=== PATIENT | female | born 1980 | race American Indian/Alaskan Native ===

== ENCOUNTER 2019-04-26 12:13 | Emergency (ER) | payer OTHER ==
[2019-04-26 12:53] VITALS: BP 116/78
--- NOTE | 2019-04-26 12:53 | Event Note ---
ED Screening Note Date of service: 04/26/19 Time: 12:50 ED Screening Note: rt knee pain and swelling times two weeks. Took nothing for pain. Denies any trauma This initial assessment/diagnostic orders/clinical plan/treatment(s) is/are subject to change based on patients health status, clinical progression and re- assessment by fellow clinical providers in the ED. Further treatment and workup at subsequent clinical providers discretion. Patient/guardian urged not to elope from the ED as their condition may be serious if not clinically assessed and managed. Initial orders include:
--- NOTE | 2019-04-26 15:09 | Emergency Department Report ---
ED Back Pain/Injury HPI - General Chief Complaint: Extremity Injury, Lower Stated Complaint: RT KNEE PAIN Time Seen by Provider: 04/26/19 14:15 Source: patient Limitations: Physical Limitation - History of Present Illness Initial Comments: Patient is a 38-year-old who comes to the ER complaining of right knee pain. She states that it was acute in onset this morning after she felt a pop. She denies any falls or other trauma. Patient is in a wheelchair on examination see. Her ability to ambulate is limited by pain. She is taking nothing at home to relieve the pain. Movement makes the pain worse. - Related Data Previous Rx's Medication Instructions Recorded Last Taken Type Ketorolac [Toradol] 10 mg PO Q6H PRN #10 tablet 04/26/19 Unknown Rx traMADol [Ultram] 50 mg PO Q6HR PRN #10 tablet 04/26/19 Unknown Rx Allergies Allergy/AdvReac Type Severity Reaction Status Date / Time No Known Allergies Allergy Unverified 04/26/19 12:19 ED Review of Systems ROS: Stated complaint: RT KNEE PAIN Other details as noted in HPI Comment: All other systems reviewed and negative ED Past Medical Hx - Past Medical History Medical history: no medical history ED Back Pain Physical Exam - Exam General: Vital signs noted. No distress. Alert and acting appropriately. Thigh is within normal limits on exam. Ankle within normal limits on exam. +2 DP pulses. There is no appreciable effusion on knee exam. There is no pain on palpation of the joint lines. There is a positive popliteal pulse. Back/Abdomen: No Abdominal Tenderness, No Perithoracic Tenderness, No Perilumbar Tenderness, No Sacroiliac Tenderness, No Flank Tenderness, No Straight Leg Raise Pain Neuro: Yes Normal Sensation, Yes Normal DTR's, Yes Normal Gait, No Motor Weakness ED Course Vital Signs 04/26/19 12:50 Temperature 98.2 F Pulse Rate 72 Respiratory 18 Rate Blood Pressure 116/78 O2 Sat by Pulse 100 Oximetry Ed Back Pain Tests - Tests Tests: Normal X Rays ED Medical Decision Making - Radiology Data Radiology results: report reviewed, image reviewed - Medical Decision Making X-rays noted to be normal. However, the patient is limited with ambulation due to pain. She will be placed in an immobilizer and placed on crutches. She'll be discharged home with medications for pain and follow-up with Dr. Herzog. Vital Signs 04/26/19 12:50 Temperature 98.2 F Pulse Rate 72 Respiratory 18 Rate Blood Pressure 116/78 O2 Sat by Pulse 100 Oximetry Critical care attestation.: If time is entered above; I have spent that time in minutes in the direct care of this critically ill patient, excluding procedure time. ED Disposition Clinical Impression: Knee pain, right Disposition: [id number] TO HOME OR SELFCARE Is pt being admited?: No Does the pt Need Aspirin: No Condition: Stable Additional Instructions: DIET TOLERATED MEDS ORDERED TODAY IN ER FOLLOW INSTRUCTIONS ON THE BOTTLE FOLLOW UP PCP WITHIN 48 HOURS TO ENSURE YOU ARE GETTING BETTER ACTIVITY TOLERATED MOTRIN OR TYLENOL FOR PAIN OR FEVER RETURN TO THE ER FOR WORSENING SYMPTOMS NOT RELIEVED BY YOUR MEDICATIONS. ice rest immobilize crutches follow up with Dr Herzog Referral below Referrals: ELOISA HERZOG MD [Staff Physician] - 3-5 Days Time of Disposition: 15:34
--- NOTE | 2019-04-26 15:26 | XRay Report ---
RIGHT KNEE, 3 views: History: Knee pain. This examination is just presented to me for interpretation The bony architecture is intact without evidence of fracture or dislocation. No significant soft tissue abnormality is seen. IMPRESSION: Unremarkable right knee.
[2019-04-26] MEDS ORDERED: NORCO 5/325 PO ONE (15:37)
[2019-04-26] MEDS ORDERED: TORADOL IM ONE (15:37)
== END 2019-04-26 16:05 | disposition home or self-care (01) ==
LOC: ED 12:13
DX: M25.561 Pain in right knee (principal)
CPT/HCPCS: 29505; 73562; 96372; 99283; J1885